=== PATIENT | male | born 1990 | race Caucasian/White ===

== ENCOUNTER 2025-07-24 12:55 | Emergency (ER) | payer BC, SELFPAY ==
[2025-07-24 13:46] VITALS: BP 152/75; PULSE 79; RESP 18; TEMP 36.6; O2SAT 99
[2025-07-24 15:42] LABS: Appearance Urine Clear (Clear)
--- NOTE | 2025-07-24 16:30 | ED_ITS ---
HPI - Abdominal Pain General Time Seen by Provider: 16:30 Date Seen: 07/24/25 Chief Complaint: Abdominal Pain Stated Complaint: Abdominal pain Time Seen by Provider: 07/24/25 16:30 Source: patient, RN notes reviewed and old records reviewed Mode of arrival: ambulatory Limitations: no limitations History of Present Illness HPI narrative: 35-year-old male who presents today with one year of abdominal pain. Patient notes intermittent right upper quadrant abdominal pain going on for the last year. Worse with activity, does not seem to be related to eating. No shortness of breath. No known injury. Has not taken any medication including gtfy-sgh-sjqyapv medication for this. No lower abdominal pain, no testicular pain and swelling, no weight loss or weight gain. Patient had pain last night which is why came to the emergency department today, not currently having pain. Related Data Home Medications ?Medication ?Instructions ?Recorded ?Confirmed finasteride 1 mg tablet 1 mg PO DAILY 07/24/2507/24 Allergies Allergy/AdvReac Type Severity Reaction Status Date / Time No Known Drug Allergies Allergy Verified 07/24/25 13:50 Exam Narrative: Exam Narrative: General: Well-developed and well-nourished, no acute distress Head: Atraumatic and normocephalic Eyes: Pupils are equal reactive, extraocular motions intact, conjunctiva clear ENT: External nose and ears are normal, posterior pharynx without erythema or exudate Neck: No midline cervical tenderness, full spontaneous range of motion the neck, trachea midline, no adenopathy Heart: Regular rate and rhythm no murmurs or thrills Lungs: Clear to auscultation bilaterally without wheezes or crackles Abdomen: Soft, nontender, nondistended with active bowel sounds Musculoskeletal: No tenderness, deformity, or edema Neurologic: Awake, alert, and oriented x3, no gross focal neurologic deficits, cranial nerves intact as tested Psych: Mood and affect are appropriate Skin: No rashes Const: Vital Signs, click to edit/add: Vital Signs - 24 hr 07/24/25 13:46 Temperature 98 F Pulse Rate [Right Pulse Oximeter] 79 Respiratory Rate 18 Blood Pressure [Ri ght Upper Arm] 152/75 H Pulse Oximetry 99 Oxygen Delivery Me thod Room Air Course Course ED Course: Additional records reviewed: Prior emergency department visit from March 2015 when patient was seen with anxiety, gastroenterology note from May 2024 which was follow-up for early satiety and dyspepsia and reactive gastropathy with good response to PPI Additional history from: None Care impacted by: Nicotine use Testing considered but not performed: CT abdomen and pelvis, CBC, hepatic panel Disposition: Home Patient presents today with a year of intermittent right upper quadrant abdominal pain, seems to be worse with activity, not worse with eating or drinking. No pain currently. On exam vital is stable, no abdominal tenderness. Bedside ultrasound with normal appearing gallbladder, no hydronephrosis or stones noted in the kidney. Patient reassured and can follow up with primary care. Given that activity makes his pain worse, this likely is musculoskeletal in nature this, recommend using rkqg-ipk-ydlcfxz medications follow-up with primary care in a week or so if not doing better for consideration for physical therapy or further evaluation. As patient has no pain now, no abdominal tenderness, no indication for CT abdomen and pelvis. Vital Signs Vital signs: Initial Vital Signs Temperature 98 F 07/24/25 13:46 Temperature Source Temporal Artery Scan 07/24/25 13:46 Pulse Rate 79 07/24/25 13:46 Pulse Rhythm Regular 07/24/25 13:46 Pulse Strength 3+ Normal 07/24/25 13:46 Respiratory Rate 18 07/24/25 13:46 Blood Pressure 152/75 H 07/24/25 13:46 Blood Pressure Mean 100 07/24/25 13:46 Blood Pressure Position Sitting 07/24/25 13:46 Pulse Oximetry 99 07/24/25 13:46 Oxygen Delivery Method Room Air 07/24/25 13:46 Vital Signs Temperature 98 F 07/24/25 13:46 Pulse Rate 79 07/24/25 13:46 Respiratory Rate 18 07/24/25 13:46 Blood Pressure 152/75 H 07/24/25 13:46 Pulse Oximetry 99 07/24/25 13:46 Oxygen Delivery Method Room Air 07/24/25 13:46 Temperature 98 F 07/24/25 13:46 Pulse Rate 79 07/24/25 13:46 Respiratory Rate 18 07/24/25 13:46 Blood Pressure 152/75 H 07/24/25 13:46 Pulse Oximetry 99 07/24/25 13:46 Oxygen Delivery Method Room Air 07/24/25 13:46 MDM - Abdominal Pain Lab Data Labs: Lab Results 07/24/25 Range/Units 13:53 Urine Color Yellow (Yellow) Urine Appearance Clear (Clear) Urine pH 7.5 (5.0-8.5) Ur Specific [place] 1.015 (1.000-1.030) Urine Protein Negative (Negative) Urine Glucose (UA) Negative (Negative) Urine Ketones Negative (Negative) Urine Blood Negative (Negative) Urine Nitrite Negative (Negative) Urine Bilirubin Negative (Negative) Urine Urobilinogen 0.2 (0.2-1.0) Ur Leukocyte Esterase Negative (Negative) Urine RBC 0-2 (0-2) Urine WBC 0-2 (0-5) Ur Squamous Epith Cells None (None-Few) Urine Bacteria None (None) Discharge Plan Discharge Clinical Impression: Abdominal wall pain Patient Disposition: Home, Self-Care Condition: Stable Instructions: Abdominal Pain (ED) Additional Instructions: Take Tylenol or ibuprofen as needed for pain Gentle stretching, warm packs or cool packs for comfort Follow-up with your primary care provider in 1 week if symptoms not improved for consideration for physical therapy or further evaluation Activity Level: No Restrictions Discharge Diet: Regular Prescriptions: No Action finasteride 1 mg tablet 1 mg PO DAILY Stand Alone Forms: Work/School Release, [facility] Info Instructions
--- OUTSIDE RECORDS SUMMARY | 2025-07-24 17:11 | XMS_ITS | Clinical Summary ---
Author Organization [facility] Address [address] [place] [id number] Care Team Providers Care Quality Consultant Name Role Phone Pcp, No Primary Care Provider Unavailabl e Allergies No known active allergies Medications MedicationSigDispense QuantityRefillsLast FilledStart DateEnd DateStatus finasteride (PROSCAR) 5 mg tablet Indications:Hair loss disorderTAKE 1/4 (ONE-FOURTH) TABLET BY MOUTH IN THE MORNING 30 Tablet 4Active Active Problems ProblemNoted DateDiagnosed DateGeneralized anxiety mhmbzruc41/17/2014ttention deficit disorder without mention of swpcavzibyvrv69/26/2011 Overview (01/17/2012): Per Dr. 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 ADD, which is difficult to treat - suggested consultation with Ha Lacey Closed fracture of one or more phalanges of foot10/29/2009Tobacco dependence Resolved Problems ProblemNoted DateDiagnosed DateResolved DateSocial ynkoie62 Anxiety uqxuhmyr03[place] usenxiety state, gavbrejsxqz71 Immunizations ImmunizationAdministration DatesNext DueInfluenza, [id number]/18/2022, 02/25/2011 Family History Medical HistoryRelationNameCommentsHypertensionFatherGood HealthMotherRelation NameStatusCommentsFatherMother Social History Tobacco UseTypesPacks/DayYears UsedDateSmoking Tobacco: FormerCigarettes0.311 08/2011 - 2022Smokeless Tobacco: Never Tobacco Cessation:Counseling Given: Not Answered Comments:has been cutting back Alcohol UseStandard Drinks/WeekCommentsYes0 (1 standard drink = 0.6 oz pure alcohol)rareHumiliation, Afraid, Rape, and Kick questionnaireAnswerDate Recorded Fear of Current or Ex-AmejawfYq03/05/2019Emotionally LrubktVr23/05/2019 Physically UhuknjAj34/05/2019Sexually AzfcmwGr97/05/2019PHQ-2AnswerDate Recorded PHQ-2 TOTAL [id number] [place] of Occupational Health - Occupational Stress QuestionnaireAnswerDate RecordedFeeling of StressNot at all 01/18/2019Exercise Vital SignAnswerDate RecordedDays of Exercise per Week0 days 01/18/2019Minutes of Exercise per Session0 min01/18/2019Social ConnectionsAnswer Date RecordedFrequency of Communication with Friends and FamilyNot on file 08/11/2021Financial Resource StrainAnswerDate RecordedDifficulty of Paying Living ExpensesNot on file08/11/2021ifficulty of Paying Living ExpensesNot on file08/11/2021ex and Gender InformationValueDate RecordedSex Assigned at Not on fileLegal NwzDtmn1408/29/2012 7:43 AM CSTGender IdentityNot on fileSexual OrientationNot on file Last Filed Vital Signs Vital SignReadingTime TakenCommentsBlood Vxgghzbu196/7003 3:09 PM LAYOUT MECHANIC Pyajm1343 3:09 PM JTHOxisnkvarhd25.5 ??C (97.7 ??F)11/22/2020 12:32 PM CDTRespiratory Ener031211/22/2020 12:32 PM CDTOxygen Qlrmielxuk31%10/20/2023 3:09 PM CSTInhaled Oxygen Concentration--Ufflpi73.2 kg (148 lb 3.2 oz)10/20/2023 3:09 PM USUEmzysr805 cm (6' 1.23)09/24/2023 1:52 PM CSTBody Mass Index19.43 09/24/2023 1:52 PM LAYOUT MECHANIC Plan of Treatment Health MaintenanceDue DateLast DoneCommentsHepatitis C screening for age 18-79 Hepatitis B series for 19+ (1 of 3 - 19+ 3-dose series) 02/13/2011HPV series for age 9-45 (1 - 3-dose SCDM series)02/13/2019BMI (ht and wt on same day) for age 18+502/04/2024, 06/02/2022, 11/20/2020, Additional history existsDepression screening for age 12+/04/2024, 06/02/2022, 11/22/2020, Additional history existsCOVID-19 vaccine series (2024- season)2025Influenza Vaccine (#1)/Tetanus ufwpevn80, 02/25/2011HIV for age 15-49Lapncqnei16/20/2010 Pneumococcal series for age 6-49Aged OutNo longer eligible based on patient's age to complete this topic Goals GoalPatient Goal TypeAssociated ProblemsRecent ProgressPatient-Stated?Author BLOOD PRESSURE - MAINTAINS BP less than 140/90 Blood PressureNoUtechTrang MD Procedures Procedure NamePriorityDate/TimeAssociated DiagnosisCommentsANTI HIV 1/2Routine 11/02/2009 12:15 PM CDT Screen for STD (sexually transmitted disease) ANTI NTGEqhuxcr65/20/2010 12:15 PM CDT Screen for STD (sexually transmitted disease) from Last 3 Months or Most Recently Relevant to Health Maintenance Results * ANTI HCV (11/02/2009 12:15 PM CDT)ComponentValueRef RangeTest MethodAnalysis TimePerformed AtPathologist SignatureANTI HCVNon-reactiveABBOTT PROVID[facility]ART MEDICAL CENTERpecimen (Source)Anatomical Location / LateralityCollection Method / VolumeCollection TimeReceived TimeBlood specimen (specimen)BLOOD SPECIMEN / Qvoijbr3611/02/2009 12:15 PM CDT11/02/2009 12:11 PM CDT Narrative Authorizing ProviderResult TypeResult StatusJacqueline Zamora MDSEND OUTS Final ResultPerforming OrganizationAddressCity/State/ZIP CodePhone Number [facility] INTERNAL ZIP [phone] [address] * ANTI HIV 1/2 (11/02/2009 12:15 PM CDT)ComponentValueRef RangeTest Method Analysis TimePerformed AtPathologist SignatureANTI HIV 1/2Non-reactiveABBOTT PROVID[facility] CENTERpecimen (Source)Anatomical Location / Laterality Collection Method / VolumeCollection TimeReceived TimeBlood specimen (specimen)BLOOD SPECIMEN / Mziccup3911/02/2009 12:15 PM CDT11/02/2009 12:11 PM CDT Narrative Authorizing ProviderResult TypeResult StatusJacqueline Zamora MDSEND OUTS Final ResultPerforming OrganizationAddressCity/State/ZIP CodePhone Number [facility] [place]NAL ZIP [phone] [address] from Last 3 Months or Most Recently Relevant to Health Maintenance Insurance [id number] [place] [address] Care Teams Team MemberRelationshipSpecialtyStart DateEnd Date Antonieta Mohan - Eweqbtx82/3/22
--- OUTSIDE RECORDS SUMMARY | 2025-07-24 17:11 | XMS_ITS | Clinical Summary ---
Author Organization [facility] Address [address] [place] [address] Care Team Providers Care Airline Counter Agent Name Role Phone [facility], [facility] Primary Care Provider Allergies No known active allergies Medications MedicationSigDispense QuantityRefillsLast FilledStart DateEnd DateStatus FINASTERIDE PO Active Social History Tobacco UseTypesPacks/DayYears UsedDateSmoking Tobacco: FormerAlcohol Use Standard Drinks/WeekCommentsYes0 (1 standard drink = 0.6 oz pure alcohol)2 times a monthSex and Gender InformationValueDate RecordedSex Assigned at BirthNot on fileLegal IbhFnvm0504/06/2018 5:29 PM CDTGender IdentityNot on fileSexual OrientationNot on file Last Filed Vital Signs Vital SignReadingTime TakenCommentsBlood Lwtgmvlq910/8404/06/2018 7:30 PM CDT Pulse--Gtwdahtrhph37 ??C (98.6 ??F)04/06/2018 5:42 PM CDTRespiratory Rate20 04/06/2018 5:42 PM CDTOxygen Ocjokmqate699%04/06/2018 7:30 PM CDTInhaled Oxygen Concentration--Ywvjlf03.5 kg (140 lb)04/06/2018 5:42 PM PTCLaatcd476 cm (6' 2) 04/06/2018 5:42 PM CDTBody Mass Index17.9704/06/2018 5:42 PM CDT Plan of Treatment Not on file Care Teams Team MemberRelationshipSpecialtyStart DateEnd [facility], [facility] [address] [place] [address] PCP - General04/06/18
--- OUTSIDE RECORDS SUMMARY | 2025-07-24 17:11 | XMS_ITS | Clinical Summary ---
Author Organization [facility] [facility] Address [address] [facility] [address] Care Team Providers Care Engineering Aide Name Role Phone Heidy Canchola MD Primary Care Provider Allergies No known active allergies Medications No known medications Social History Tobacco UseTypesPacks/DayYears UsedDateSmoking Tobacco: Every DaySex and Gender InformationValueDate RecordedSex Assigned at BirthNot on fileLegal SexMale 09/18/2015 10:12 PM ESTGender IdentityNot on fileSexual OrientationNot on file Last Filed Vital Signs Vital SignReadingTime TakenCommentsBlood Pmxfetqr868/6005 3:33 PM CDT Rpvqu9522 3:33 PM BWQGvdmlidpuig76.1 ??C (97 ??F)12/25/2015 3:33 PM CDT Respiratory Aorh2605 3:33 PM CDTOxygen Uoudyfagve88%12/25/2015 3:33 PM CDTInhaled Oxygen Concentration--Weight--Height--Body Mass Index-- Plan of Treatment Not on file Medical Devices Not on file Insurance * Guarantor: Ganesh Husain TypeRelation to PatientDate of BirthPhone Billing AddressPersonal/LbrkjuVzna1990 [phone] [address] Care Teams Team MemberRelationshipSpecialtyStart DateEnd Date Heidy Canchola MD [facility]
== END 2025-07-24 17:22 | disposition home or self-care (01) ==
PROVIDERS: Emergency Provider Family Medicine
DX: R10.11 Right upper quadrant pain (principal)
CPT/HCPCS: 76705; 81001; 99284